=== PATIENT | female | born 1950 | race Caucasian/White ===

== ENCOUNTER 2022-08-17 12:19 | Emergency (ER) | payer MEDICARE, BC, SELFPAY ==
[2022-08-17 12:40] VITALS: BP 124/81; PULSE 106; RESP 18; TEMP 37.1; O2SAT 96
--- NOTE | 2022-08-17 13:27 | ED.GENADULT ---
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 The patient has had a cold onset over the last 3 4 days, has noticed more difficulty breathing, hoarseness in voice, productive cough. She is not significantly short of breath constantly she had an Advair inhaler at home but does not use Advair regularly. Her O2 sat here is 96% on room air and she is afebrile. No leg swelling edema, no bleeding or clotting problems. No chest pain. Related Data Home Medications Medication Instructions Recorded Confirmed atorvastatin 10 mg tablet mg 08/17/22 lisinopril 10 tab 08/17/22 mg-hydrochlorothiazide 12.5 mg tablet Allergies Allergy/AdvReac Type Severity Reaction Status Date / Time No Known Drug Allergies Allergy Verified 08/17/22 12:44 Review of Systems Status of ROS: Reports: 6 or more systems reviewed and unremarkable except as noted in History and below Exam Narrative: Exam Narrative: Objective: Patient's vital signs unremarkable, O2 sat excellent She talks in a mildly hoarse voice. HEENT unremarkable neck is supple Lungs diminished air exchange bilaterally, no rales or wheezing heard Heart rhythm regular heart murmur Patient denies any extremity swelling Const: Vital Signs, click to edit/add: Vital Signs - 24 hr 08/17/22 12:40 Temperature 98.8 F Pulse Rate [Right Pulse Oximeter] 106 H Respiratory Rate 18 Blood Pressure [Ri ght Upper Arm] 124/81 Pulse Oximetry 96 Oxygen Delivery Me thod Room Air Course Vital Signs Vital signs: Initial Vital Signs Temperature 98.8 F 08/17/22 12:40 Temperature Source Temporal Artery Scan 08/17/22 12:40 Pulse Rate 106 H 08/17/22 12:40 Respiratory Rate 18 08/17/22 12:40 Blood Pressure 124/81 08/17/22 12:40 Blood Pressure Mean 95 08/17/22 12:40 Blood Pressure Position Sitting 08/17/22 12:40 Pulse Oximetry 96 08/17/22 12:40 Oxygen Delivery Method 08/17/22 12:40 Vital Signs Temperature 98.8 F 08/17/22 12:40 Pulse Rate 106 H 08/17/22 12:40 Respiratory Rate 18 08/17/22 12:40 Blood Pressure 124/81 08/17/22 12:40 Pulse Oximetry 96 08/17/22 12:40 Oxygen Delivery Method 08/17/22 12:40 Temperature 98.8 F 08/17/22 12:40 Pulse Rate 106 H 08/17/22 12:40 Respiratory Rate 18 08/17/22 12:40 Blood Pressure 124/81 08/17/22 12:40 Pulse Oximetry 96 08/17/22 12:40 Oxygen Delivery Method 08/17/22 12:40 Medical Decision Making MDM Narrative Medical decision making narrative: Patient has an upper respiratory infection with asthma exacerbation. Given her symptomatology, productive cough. I would cover her with an albuterol inhaler, Z-Narciso, prednisone 20 mg b.i.d. x5 days. She can hold on to her Advair inhaler until she is feeling better and then use it as needed. She can use albuterol steroids and antibiotics at this time. Push fluids as well. Follow up with primary care in the next 2-3 days not improving sooner changes or concerns. We will check an RSV/COVID/influenza test as well and call her back with results. Lab Data Labs: Lab Results 08/17/22 Range/Units 12:53 SARS-CoV-2 (PCR) Negative SARS-CoV-2 (Negative) Influenza Type A (PCR) Negative PCR FLU A (Negative) Influenza Type B (PCR) Negative PCR FLU B (Negative) RSV (PCR) POSITIVE PCR RSV A (Negative) Discharge Plan Discharge Clinical Impression: Acute upper respiratory infection, Asthma Patient Disposition: Home, Self-Care Condition: Stable Instructions: Respiratory Syncytial Virus (ED) Additional Instructions: Rest, fluids, albuterol Heller as needed, prednisone as prescribed, antibiotic , fluids, return as needed to ER ER otherwise return to primary care in the next few days as needed. Hold the Advair for now and may use as needed after done with the albuterol Activity Level: Light activity Discharge Diet: Regular Prescriptions: No Action atorvastatin 10 mg tablet lisinopril-hydrochlorothiazide 10-12.5 mg tablet Follow Up/Referrals: Provider,Not a Local [Referring] - Stand Alone Forms: [employer] Info Instructions
[2022-08-17 13:36] LABS: PCR FLU A Negative PCR FLU A (Negative); PCR FLU B Negative PCR FLU B (Negative); PCR RSV POSITIVE PCR RSV (Negative)
[2022-08-17 13:40] LABS: SARS PCR* Negative SARS-CoV-2 (Negative)
--- NOTE | 2022-08-17 14:21 | ED.NURSE ---
Patient was still a patient in ED when test results came back. Patient is aware of test results.
== END 2022-08-17 14:23 | disposition home or self-care (01) ==
PROVIDERS: Emergency Provider Family Medicine; PCP Family Medicine
DX: J06.9 Acute upper respiratory infection, unspecified (principal); J45.901 Unspecified asthma with (acute) exacerbation
CPT/HCPCS: 87502; 87634; 87635; 99283; 99284